=== PATIENT | female | born 1950 | race Caucasian/White ===

== ENCOUNTER 2020-09-15 11:21 | Emergency (ER) | payer OTHER ==
[2020-09-15 11:29] VITALS: BP 132/84; PULSE 94; TEMP 97.2; BMI 28.0
[2020-09-15] MEDS ORDERED: CYCLOBENZAPRINE HCL 10 MG TABLET (FP) PO ONE (12:09)
[2020-09-15] MEDS ORDERED: CYCLOBENZAPRINE HCL 10 MG TABLET (FP) ONE (12:10)
== END 2020-09-15 13:04 | disposition home or self-care (01) ==
LOC: JERFT 11:21
DX: M54.42 Lumbago with sciatica, left side (principal)
CPT/HCPCS: 72100-TC-FY; 99284-25